=== PATIENT | female | born 1955 | race African-American/Black ===

== ENCOUNTER → 2016-08-31 | Day surgery (SDC) | payer MEDICARE, OTHER ==
[~2016-08-31] VITALS: Ht 154.9 cm; Wt 99.3 kg
[2016-08-31 09:07] LABS: HCT 42.7 % (37.0-47.0); HGB 14.6 g/dl (12.5-16.0); MCH 29.7 pg (25.0-31.0); MCHC 34.2 g/dL (32.0-36.0); MCV 86.8 fL (78.0-100.0); MPV 10.7 fL (6.0-9.5); RBC 4.92 M/uL (4.20-5.40); RDW 14.9 % (11.5-14.0); WBC 9.9 K/uL (4.0-10.5)
[2016-08-31 09:31] LABS: ALBUMIN 4.2 g/dL (3.4-4.8); BILIRUBIN - TOTAL 0.6 mg/dL (0.1-1.0); CREATININE 0.9 mg/dL (0.5-1.0); GLOBULIN (CALCULATION) 3.4 g/dL (2.2-4.2); POTASSIUM 3.9 mmol/L (3.5-5.1); TOTAL PROTEIN 7.6 g/dL (6.4-8.3)
== END | disposition home or self-care (01) ==
LOC: FAS 05-12 08:00
PROVIDERS: Surgery
DX: Z12.11 Encounter for screening for malignant neoplasm of colon (principal); I10 Essential (primary) hypertension; Z90.12 Acquired absence of left breast and nipple; Z98.890 Other specified postprocedural states; Z79.82 Long term (current) use of aspirin; Z79.899 Other long term (current) drug therapy; F17.200 Nicotine dependence, unspecified, uncomplicated
CPT/HCPCS: 36415; 80053; J2704